=== PATIENT | female | born 1970 | race Caucasian/White ===

== ENCOUNTER 2017-09-21 02:01 | Emergency (ER) | payer MEDICARE ==
[~2017-09-21] VITALS: Ht 160 cm; Wt 91.3 kg
[2017-09-21] MEDS ORDERED: PERCOCET 5/31 TABLET PO (04:07)
[2017-09-21 04:27] VITALS: BP 142/92
== END 2017-09-21 04:28 | disposition home or self-care (01) ==
LOC: EME 02:01
DX: S92.355A Nondisplaced fracture of fifth metatarsal bone, left foot, initial encounter for closed fracture (principal); M25.562 Pain in left knee; W19.XXXA Unspecified fall, initial encounter
CPT/HCPCS: 73590; 73630; 99281; 99284